=== PATIENT | female | born 1995 | race Caucasian/White ===

== ENCOUNTER → 2019-09-12 | Outpatient (CLI) | payer OTHER ==
[~2019-09-12] MED LIST: PERCOCET PO; SYNT125T PO; WELLTAB38 PO
[2019-09-12 13:05] LABS: HEMATOCRIT 41.6 % (36.0-47.0); HEMOGLOBIN 13.6 g/dl (12.0-15.5); MEAN CORPUSCULAR HGB CONC 32.7 g/dl (32.0-36.5); MEAN CORPUSCULAR VOLUME 82.7 fl (80.0-96.0); PLATELET COUNT, AUTOMATED 265 10^3/uL (150-450); RED BLOOD COUNT 5.03 10^6/uL (4.00-5.40); WHITE BLOOD COUNT 4.6 10^3/uL (4.0-10.0)
[2019-09-12 14:03] LABS: BLOOD UREA NITROGEN 9 MG/DL (7-18); CARBON DIOXIDE LEVEL 24 MEQ/L (21-32); CHLORIDE LEVEL 109 MEQ/L (98-107); CREATININE FOR GFR 0.87 MG/DL (0.55-1.30); FREE T4 0.95 NG/DL (0.76-1.46); GLOMERULAR FILTRATION RATE > 60.0 (>60); GLUCOSE, FASTING 81 MG/DL (70-100); POTASSIUM SERUM 4.5 MEQ/L (3.5-5.1); SODIUM LEVEL 141 MEQ/L (136-145); THYROID STIMULATING HORMONE 0.104 uIU/ML (0.358-3.740)
== END ==
LOC: M LAB 12:15
PROVIDERS: ATTEND Plastic Surgery Surgery of the Hand
DX: N62 Hypertrophy of breast (principal); N64.81 Ptosis of breast

== ENCOUNTER 2019-09-18 09:07 | Day surgery (SDC) | payer OTHER ==
[~2019-09-18] VITALS: Ht 165.1 cm; Wt 75.8 kg
[2019-09-18] MEDS: ceFAZolin SOD 1 GM in D5W MINI-BAG PLUS 50 ML IV ONE (06:00)
[~2019-09-18 09:07] MED LIST changes: +LR 1,000 ML IV ONE; -PERCOCET PO
[2019-09-18] MEDS ORDERED: ROCURONIUM BROMIDE 50 MG/5 ML VIAL As Ordered ONE ×2 (09:33→12:53)
[2019-09-18] MEDS ORDERED: fentaNYL 100 MCG/2 ML INJECTION (J3010) As Ordered ONE ×2 (09:33→15:10)
[2019-09-18] MEDS ORDERED: PROPOFOL 200 MG/20 ML VIAL As Ordered ONE (09:33)
[2019-09-18] MEDS ORDERED: LIDOCAINE 2% INJ 100 MG/5 ML SDV (FOR ANES.) As Ordered ONE (09:33)
[2019-09-18] MEDS ORDERED: MIDAZOLAM INJ 2 MG/2 ML VIAL (J2250) As Ordered ONE (09:33)
[2019-09-18] MEDS ORDERED: BUPIVACAINE LIPOSOME/PF 1.3% 20ML VIAL (13.3MG/ML)(EXPAREL)(C9290 PER1MG) As Ordered ONE (11:23)
[2019-09-18] MEDS ORDERED: EPINEPHrine INJ 1 MG/ML 1ML AMP As Ordered ONE (11:23)
[2019-09-18] MEDS ORDERED: BACITRACIN PWD 50,000 UNITS VIAL As Ordered ONE (11:23)
[2019-09-18] MEDS ORDERED: LIDOCAINE W/EPINEPHRINE 1% 20ML VIAL As Ordered ONE (11:23)
[2019-09-18] MEDS ORDERED: HYDROmorphone HCL 2 MG/ML 1ML VIAL (J1170) As Ordered ONE (12:27)
[2019-09-18] MEDS ORDERED: METOCLOPRAMIDE INJ 10MG/2ML VIAL (J2765) As Ordered ONE (12:56)
[2019-09-18] MEDS ORDERED: ONDANSETRON 4MG/2ML VIAL (J2405) As Ordered ONE (13:33)
[2019-09-18] MEDS ORDERED: KETOROLAC 60 MG/2 ML VIAL (J1885) As Ordered ONE (13:36)
--- NOTE | 2019-09-18 14:51 | POST-OPPD ---
Postoperative Procedure Note Date Of Procedure: Sep 18, 2019 PREOPERATIVE DIAGNOSIS: Symptomatic Macromastia POSTOPERATIVE DIAGNOSIS: same FINDINGS: Large breasts PROCEDURE: Bilateral breast reduction, mastopexy SURGEON: Dr Rivera ANESTHESIA: General SPECIMENS: Right breast 297g, Left breast 328 g ESTIMATED BLOOD LOSS: 50cc REPLACED: none DRAINS: 10 mm MARILUZ drains x 2 COMPLICATIONS: none POSTOPERATIVE CONDITION: stable WILMA RIVERA DO Sep 18, 2019 14:51
[2019-09-18] MEDS: diphenhydrAMINE INJ 50MG/ML VIAL (J1200) IV PRN ×2 (15:07→15:20)
[2019-09-18] MEDS ORDERED: diphenhydrAMINE INJ 50MG/ML VIAL (J1200) As Ordered ONE (15:07)
[2019-09-18] MEDS ORDERED: PERCOCET 5MG/325MG TAB As Ordered ONE (15:10)
[2019-09-18] MEDS: fentaNYL 100 MCG/2 ML INJECTION (J3010) IV PRN ×2 (15:10→15:17)
[2019-09-18] MEDS ORDERED: PERCOCET 5MG/325MG TAB PO PRN (15:30)
[2019-09-18] MEDS ORDERED: LR 1,000 ML IV SCH ×2 (15:30→16:45)
[2019-09-18] MEDS ORDERED: ONDANSETRON 4MG/2ML VIAL (J2405) IV PRN ×2 (15:30→16:45)
[2019-09-18] MEDS ORDERED: METOCLOPRAMIDE INJ 10MG/2ML VIAL (J2765) IV PRN (15:30)
[2019-09-18 16:30] VITALS: BP 113/68
[2019-09-18] MEDS ORDERED: MORPHINE 4 MG/ML 1ML VIAL/SYRINGE (J2270) IV PRN (16:45)
[2019-09-18 17:04] VITALS: BP 107/68
[2019-09-18 18:00] VITALS: BP 117/78
[2019-09-18] MEDS: PERCOCET 5MG/325MG TAB PO PRN (18:17)
[2019-09-18 18:51] VITALS: BP 118/74
[2019-09-18] MEDS: ceFAZolin SOD 1 GM in D5W MINI-BAG PLUS 50 ML IV SCH (19:45)
[2019-09-18 20:27] VITALS: BP 119/63
[2019-09-18 21:00] VITALS: BP 117/62
--- NOTE | 2019-09-18 21:38 | RO ---
DATE OF PROCEDURE: 09/18/2019 PREPROCEDURE DIAGNOSIS: Symptomatic macromastia. POSTPROCEDURE DIAGNOSIS: Symptomatic macromastia. PROCEDURE: Bilateral breast reduction, mastopexy. SURGEON: Shobha Burr DO ANESTHESIA: General. SPECIMEN: Right breast 297 grams, left breast 318 grams. BLOOD LOSS: 50 mL. No replacements. DRAINS: 10 mm Ion-Mack drains times two. There were no complications. DESCRIPTION OF PROCEDURE: This is a 24-year-old female who has large breasts. 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 She has upper back pain, and she has limitations with performing her job due to her large breasts and upper back pain. She is a good candidate for breast reduction and mastopexy. All risks and benefits and alternatives discussed with the patient at length, and she would really like to have the procedure done. On the day of surgery, she was marked in the upright position in preoperative holding area. Her markings from sternal notch on the left is 29 cm to the nipple areolar complex, on the right is 28 cm. The left side is a little horan. The IMF was at 20 cm. The patient confirmed with her informed consent, and then she was brought into the operating room, placed in supine position. Preoperative antibiotics were given, sequential stockings placed on the lower calves. She was prepped and draped in the usual sterile fashion. We started our procedure on the right side. Nipple areolar complex was outlined at 42 mm, and we started our resection according to superior medial pedicle pattern. Using electrocautery and PEAK cautery, inferolateral portion of the breast was resected, hemostasis obtained using electrocautery. The pedicle was de-epithelialized using Walsh scissors, in good perfusion, then it was irrigated and 7 mL of Exparel was injected into the pectoralis muscle and on the lateral portion of the chest for postoperative comfort. Then, the pedicle was turned superiorly to its new location at 20 cm from the sternal notch, and the breast mound was recreated. #0 Vicryl sutures were used to conform the mound. The pedicles were then closed with interrupted #3-0 Monocryl sutures. The vertical limb was 7 cm, excess tissue was measured and resected, creating the horizontal scar. 10 mm Ion-Mack drain was placed through the lateral portion of the incision and secured in place, and the nipple areolar complex was sutured in layers with interrupted #3-0 and #4-0 Monocryl sutures and a running #5-0 plain suture. Then, we turned our attention to the left side. Nipple areolar complex was outlined at 42 mm in diameter and resection was started using electrocautery and PEAK cautery. Inferolateral portion of the breast was removed. Hemostasis was obtained using electrocautery. The pedicle was in good condition, and it was de-epithelialized using Walsh scissors. The wound was irrigated with bacitracin irrigation and then 7 mL of Exparel was infiltrated within the pectoralis and the lateral chest. Then, the mound was re-created at 20 cm from sternal notch. #0 Vicryl sutures were used to conform it, and then the pillars were closed with interrupted #3-0 Monocryl sutures, vertical limb of 7 cm, excess tissue was measured and resected, creating the horizontal scar. 10 mm Ion-Mack drain placed through the lateral portion of the horizontal incision. Nipple areolar complex was placed with interrupted sutures, #3-0 and #4-0 Monocryl sutures and a #5-0 running. Prineo dressing was used for the vertical and horizontal scars. Also, the rest of the Exparel was infiltrated in the horizontal scar, the rest 6 mL, so a total of 20 mL of Exparel was given and Xeroform was placed on the nipple areolar complex with bulky dressing and a surgical bra. The patient was extubated in the operating room without any difficulties, transferred to the recovery room in stable condition. LIAM
[2019-09-19] MEDS: ceFAZolin SOD 1 GM in D5W MINI-BAG PLUS 50 ML IV SCH (04:00)
[2019-09-19] MEDS: PERCOCET 5MG/325MG TAB PO PRN ×2 (04:00→10:56)
[2019-09-19 06:00] VITALS: BP 108/64
--- NOTE | 2019-09-19 08:37 | IPNPDOC ---
Subjective General Date/Time Seen The patient was seen on 09/19/19 at 08:00. Subject Chief Complaint/History The patient is a 24-year-old female admitted with a reason for visit of Breast Hypertrophy, Ptosis. Current Medications Current Medications Current Medications Medications (Trade) Dose Ordered Sig/Lavell Route PRN Reason Start Time Stop Time Status Last Admin Dose Admin Cefazolin Sodium 1 gm/Dextrose 50 ml @ 100 mls/hr Q8H IV 09/18/19 20:00 09/19/19 04:29 DC 09/19/19 04:00 Diphenhydramine HCl (Benadryl) 12.5 mg Q4HP PRN IV PRURITIS ASSOC WITH NARCOTICS 09/18/19 15:30 09/18/19 16:30 DC 09/18/19 15:20 Fentanyl Citrate (Sublimaze) 25 mcg Q5MP PRN IV PAIN LEVEL 5-10 09/18/19 15:30 09/18/19 16:30 DC 09/18/19 15:17 Lactated Ringer's 1,000 ml @ 75 mls/hr [id number] IV 09/18/19 16:45 09/18/19 16:53 Lactated Ringer's 1,000 ml @ 100 mls/hr Q10H IV 09/18/19 15:30 09/18/19 16:30 DC 09/18/19 14:54 Metoclopramide HCl (REGLAN INJection) 10 mg Q6HP PRN IV NAUSEA OR VOMITING 09/18/19 15:30 09/18/19 16:30 DC Miscellaneous (Unresolved Clarification Entry) SEE LABEL COMMENTS DAILY XX 09/18/19 09:00 09/19/19 08:03 DC Miscellaneous (Unresolved Clarification Entry) SEE LABEL COMMENTS DAILY XX 09/19/19 09:00 Morphine Sulfate (Morphine Sulfate Inj) 4 mg Q4H PRN IV SEVERE PAIN (PS 8-10) 09/18/19 16:45 Ondansetron HCl (ZOFRAN INJection) 4 mg Q4H PRN IV NAUSEA 09/18/19 16:45 Ondansetron HCl (ZOFRAN INJection) 4 mg Q4HP PRN IV NAUSEA OR VOMITING 09/18/19 15:30 09/18/19 16:30 DC Oxycodone/ Acetaminophen (Percocet 5mg/ 325mg Tablet) 1 tab ASDIRECTED PRN PO PAIN LEVEL 1-4 09/18/19 15:30 09/18/19 16:30 DC 09/18/19 15:10 Oxycodone/ Acetaminophen (Percocet 5mg/ 325mg Tablet) 1 tab Q4H PRN PO MODERATE PAIN (PS 5-7) 09/18/19 16:45 09/19/19 04:00 Allergies Coded Allergies: tomato (Verified Allergy, Severe, ANAPHYLAXIS, 09/17/19) Objective Physical Examination Examination GENERAL APPEARANCE:Patient seen, laying in bed, awake, alert, and oriented. Comfortable, in no acute distress. SKIN: Warm and moist. BREAST: Soft, flaps viable, expectant post op ecchymosis. NAC viable. MARILUZ serosanguinous. LUNGS: Clear to auscultation bilaterally. No wheezing appreciated. HEART: No chest wall abnormalities. Regular rate and rhythm with no murmurs vivian reciated. Vital Signs Vital Signs Date Time Temp Pulse Resp B/P (MAP) Pulse Ox O2 Delivery O2 Flow Rate FiO2 09/19/19 06:00 98.7 64 18 108/64 (79) 96 Room Air 09/18/19 15:20 2 I&Os I&O- Last 24 Hours up to 6 AM 09/19/19 06:00 Intake Total 1840 ml Output Total 65 ml Balance 1775 ml Impression S/p BBR, mastopexy. POD 1. Doing well Pain controlled Stable for discharge Continue with MARILUZ monitoring at home Support bra Rx Percocet for pain F/up plastic surgery office Instructions given. Plan / VTE VTE Prophylaxis Ordered?: Yes WILMA RIVERA DO Sep 19, 2019 08:37
[2019-09-19] MEDS ORDERED: PERCOCET PO (08:41)
== END 2019-09-19 11:00 | disposition home or self-care (01) ==
LOC: M SDC 09:07 → M MS5PR 16:15 → M SDC 09-19 11:00
PROVIDERS: ATTEND Plastic Surgery Surgery of the Hand
DX: N62 Hypertrophy of breast (principal); N64.81 Ptosis of breast; E03.9 Hypothyroidism, unspecified; Z79.899 Other long term (current) drug therapy; F17.290 Nicotine dependence, other tobacco product, uncomplicated
CPT/HCPCS: 19316; 19318; 81025; 88305; 96374; 96375; 96376; C9290; J0690; J1170; J1200; J1885; J2250; J2405; J2765; J3010

== ENCOUNTER → 2019-12-12 | Outpatient (CLI) | payer OTHER ==
[~2019-12-12] MED LIST changes: -LR 1,000 ML IV ONE; +PERCOCET PO
== END ==
LOC: M LRY 09:07
PROVIDERS: ATTEND Plastic Surgery Surgery of the Hand
DX: R63.5 Abnormal weight gain (principal); Z53.9 Procedure and treatment not carried out, unspecified reason

== ENCOUNTER → 2019-12-13 | Outpatient (CLI) | payer OTHER ==
[2019-12-13 10:26] LABS: FREE THYROXINE INDEX 2.9 % (1.3-4.8); THYROID STIMULATING HORMONE 4.65 uIU/ML (0.358-3.740); THYROXINE (T4) 8.6 UG/DL (4.5-12.0)
== END ==
LOC: M LAB 08:16
PROVIDERS: ATTEND Plastic Surgery Surgery of the Hand
DX: R63.5 Abnormal weight gain (principal)

== ENCOUNTER → 2019-12-31 | Outpatient (REF) | payer OTHER | LOC: M LAB REF 17:22 | PROVIDERS: ATTEND Plastic Surgery Surgery of the Hand | DX: L90.5 Scar conditions and fibrosis of skin (principal) ==

== ENCOUNTER → 2020-09-23 | Outpatient (CLI) | payer OTHER ==
[2020-09-23 11:22] LABS: FREE T4 0.55 NG/DL (0.76-1.46); THYROID STIMULATING HORMONE 3.66 uIU/ML (0.358-3.740)
== END ==
LOC: M PLALAB 08:00
PROVIDERS: ATTEND Nurse Practitioner Family
DX: E06.3 Autoimmune thyroiditis (principal)

== ENCOUNTER → 2020-11-19 | Outpatient (CLI) | payer OTHER ==
[2020-11-19 11:01] LABS: FREE T4 1.01 NG/DL (0.76-1.46); THYROID STIMULATING HORMONE 0.028 uIU/ML (0.358-3.740)
== END ==
LOC: M PLALAB 08:02
PROVIDERS: ATTEND Nurse Practitioner Family
DX: E06.3 Autoimmune thyroiditis (principal)

== ENCOUNTER → 2021-02-09 | Outpatient (CLI) | payer OTHER ==
[2021-02-09 16:01] LABS: FREE T4 0.52 NG/DL (0.76-1.46); THYROID STIMULATING HORMONE 14.9 uIU/ML (0.358-3.740)
== END ==
LOC: M PLALAB 08:41
PROVIDERS: ATTEND Nurse Practitioner Family
DX: E06.3 Autoimmune thyroiditis (principal)

== ENCOUNTER → 2021-04-10 | Outpatient (REF) | payer OTHER ==
[2021-04-10 10:58] LABS: FREE T4 1.24 NG/DL (0.76-1.46); THYROID STIMULATING HORMONE 0.07 uIU/ML (0.358-3.740)
== END ==
LOC: M PLALAB 09:44
PROVIDERS: ATTEND Nurse Practitioner Family
DX: E06.3 Autoimmune thyroiditis (principal)

== ENCOUNTER → 2021-07-17 | Outpatient (CLI) | payer OTHER ==
[2021-07-17 10:57] LABS: FREE T4 0.89 NG/DL (0.76-1.46); THYROID STIMULATING HORMONE 0.024 uIU/ML (0.358-3.740)
== END ==
LOC: M PLALAB 08:17
PROVIDERS: ATTEND Nurse Practitioner Family
DX: E06.3 Autoimmune thyroiditis (principal)